=== PATIENT | female | born 1990 | race Caucasian/White ===

== ENCOUNTER 2021-04-13 04:10 | Inpatient (IN) | payer OTHER ==
[~2021-04-13] VITALS: Ht 152.4 cm; Wt 76.1 kg
[2021-04-13] MEDS ORDERED: NS 1,000 ML IV ONE (04:15)
[2021-04-13] MEDS ORDERED: ISOVUE-370 76% 100ML VIAL As Ordered ONE (04:18)
[2021-04-13 04:37] LABS: BASO % 0.4 % (0.0-1.0); EOS # 0.2 10^3/uL (0.0-0.5); HEMATOCRIT 38.5 % (36.0-47.0); HEMOGLOBIN 12.8 g/dl (12.0-15.5); LYMPH # 2.9 10^3/uL (1.5-5.0); LYMPH % 38.6 % (24.0-44.0); MEAN CORPUSCULAR HEMOGLOBIN 28.4 pg (27.0-33.0); MEAN CORPUSCULAR HGB CONC 33.2 g/dl (32.0-36.5); MEAN CORPUSCULAR VOLUME 85.4 fl (80.0-96.0); MONO # 0.5 10^3/uL (0.0-0.8); MONO % 6.5 % (2.0-8.0); NEUTROPHILS % 52.1 % (36.0-66.0); PLATELET COUNT, AUTOMATED 238 10^3/uL (150-450); RED BLOOD COUNT 4.51 10^6/uL (4.00-5.40); WHITE BLOOD COUNT 7.6 10^3/uL (4.0-10.0)
[2021-04-13] MEDS ORDERED: MORPHINE 2 MG/ML 1ML VIAL (J2270) As Ordered ONE (04:41)
[2021-04-13] MEDS ORDERED: MORPHINE 2 MG/ML 1ML VIAL (J2270) IV PRN ×3 (04:45→09:00)
[2021-04-13 05:14] LABS: HCG, SERUM QUALITATIVE NEGATIVE (NEGATIVE)
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
[2021-04-13 05:18] LABS: INR 0.98; PROTHROMBIN TIME 13.4 SECONDS (12.7-14.5)
[2021-04-13 05:19] LABS: PARTIAL THROMBOPLASTIN TIME 37.7 SECONDS (25.9-37.0)
[2021-04-13 05:21] LABS: ALBUMIN 3.3 GM/DL (3.2-5.2); ALT/SGPT 22 U/L (12-78); AMYLASE 47 U/L (25-115); BILIRUBIN,DIRECT 0.1 MG/DL (0.0-0.2); BILIRUBIN,TOTAL 0.4 MG/DL (0.2-1.0); BLOOD UREA NITROGEN 13 MG/DL (7-18); CALCIUM LEVEL 8.3 MG/DL (8.5-10.1); CARBON DIOXIDE LEVEL 28 MEQ/L (21-32); CHLORIDE LEVEL 112 MEQ/L (98-107); CK-MB VALUE MASS 3.8 NG/ML (<3.6); CPK CREATINE PHOSPHOKINASE 137 U/L (26-192); CREATININE FOR GFR 0.93 MG/DL (0.55-1.30); ETHYL ALCOHOL (ETHANOL) < 0.003 % (0.000-0.010); GLOMERULAR FILTRATION RATE > 60.0 (>60); GLUCOSE, FASTING 100 MG/DL (70-100); LIPASE 89 U/L (73-393); MB/CK RELATIVE INDEX 2.77 (< OR =4); POTASSIUM SERUM 3.9 MEQ/L (3.5-5.1); SODIUM LEVEL 142 MEQ/L (136-145); TOTAL PROTEIN 6.7 GM/DL (6.4-8.2); TROPONIN I < 0.02 NG/ML (< 0.10)
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
[2021-04-13 07:48] LABS: AMPHETAMINES LEVEL URINE POSITIVE (NEGATIVE); BARBITURATES URINE NEGATIVE (NEGATIVE); BENZODIAZEPINES URINE NEGATIVE (NEGATIVE); CANNABINOIDS URINE NEGATIVE (NEGATIVE); COCAINE METABOLITE URINE POSITIVE (NEGATIVE); METHADONE URINE NEGATIVE (NEGATIVE); OPIATES URINE POSITIVE (NEGATIVE); PHENCYCLIDINE URINE NEGATIVE (NEGATIVE)
[2021-04-13] MEDS ORDERED: HOME MED LIST COMPLETE! XX SCH (07:55)
[2021-04-13] MEDS ORDERED: ONDANSETRON 4MG/2ML VIAL IV PRN (09:00)
[2021-04-13] MEDS ORDERED: PERCOCET 5MG/325MG TAB PO PRN (09:00)
[2021-04-13] MEDS ORDERED: ONDANSETRON 4 MG TAB PO PRN (09:00)
[2021-04-13] MEDS ORDERED: IPRATROPIUM 0.5MG/ALBUTEROL 2.5MG INH SOL UD 3ML (DUONEB) NEB PRN (09:05)
[2021-04-13] MEDS ORDERED: NS 1,000 ML IV SCH (09:30)
[2021-04-13] MEDS: PANTOPRAZOLE 40MG VIAL (C9113 PER 1) IV SCH (09:43)
[2021-04-13 11:28] LABS: RSV AMPLIFICATION NEGATIVE (NEGATIVE)
[2021-04-13] MEDS: IPRATROPIUM 0.5MG/ALBUTEROL 2.5MG INH SOL UD 3ML (DUONEB) NEB SCH ×2 (13:55→19:23)
[2021-04-13 18:00] VITALS: BP 107/71
[2021-04-13] MEDS: PERCOCET 5MG/325MG TAB PO PRN (19:39)
[2021-04-13 22:00] VITALS: BP 110/68
[2021-04-14] MEDS: IPRATROPIUM 0.5MG/ALBUTEROL 2.5MG INH SOL UD 3ML (DUONEB) NEB SCH ×2 (01:37→07:28)
[2021-04-14 02:00] VITALS: BP 109/58
[2021-04-14 06:00] VITALS: BP 109/58
[2021-04-14] MEDS: PANTOPRAZOLE 40MG VIAL (C9113 PER 1) IV SCH (08:44)
[2021-04-14 10:00] VITALS: BP 119/74
[2021-04-14] MEDS: PERCOCET 5MG/325MG TAB PO PRN (10:33)
[2021-04-14] MEDS ORDERED: PERCOCET PO (12:17)
[2021-04-14] MEDS ORDERED: IBUP-1022 PO ×2 (12:17→14:23)
[2021-04-14] MEDS ORDERED: OXYC1TAB23 PO (14:22)
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
== END 2021-04-14 13:20 | disposition home or self-care (01) | DRG 135 ==
LOC: M ED 04:10 → M ED INP 08:56 → EDBD 08:56 → ENRESERV 10:40 → M MSPAV 14:47
PROVIDERS: ADMIT Surgery; ATTEND Surgery
DX: S27.329A Contusion of lung, unspecified, initial encounter (principal); S22.42XA Multiple fractures of ribs, left side, initial encounter for closed fracture; S50.02XA Contusion of left elbow, initial encounter; V47.9XXA Unspecified car occupant injured in collision with fixed or stationary object in traffic accident, initial encounter; Z88.0 Allergy status to penicillin; Z88.5 Allergy status to narcotic agent; Z88.6 Allergy status to analgesic agent